=== PATIENT | female | born 1940 | race Caucasian/White ===

== ENCOUNTER 2016-12-06 10:59 | Outpatient (CLI) | payer OTHER ==
--- NOTE | 2016-12-06 12:23 | DIAGNOSTIC IMAGING REPORT ---
PROCEDURE: DEXA BONE DENSITY STUDY CLINICAL INDICATION: SCREENING COMPARISON: DEXA 02/08/2013 FINDINGS: LUMBAR SPINE: Bone mineral density 0.797 g/cm2, T score -2.3 osteopenia which represents a 1.4% improvement from the previous study LEFT HIP: Bone mineral density 0.956 g/cm2, T score 0.1 normal which represents a 6.2% improvement from the previous study LEFT FEMORAL NECK: Bone mineral density 0.744 g/cm2, T score -0.9 normal which represents a 1.2% decrease since the previous study FRACTURE RISK CALCULATION ( when applicable): 10-year fracture risk of a major osteoporotic fracture 9.8% and of a hip fracture 1.5% (T score greater or equal to -1.0 to: NORMAL) (T score from -1.1 to -2.4: OSTEOPENIA) (T score ess than or equal to -2.5: OSTEOPOROSIS) IMPRESSION: 1. Lumbar spine osteopenia with a 10-year major fracture risk of 9.8% and a hip fracture risk of 1.5%
== END 2016-12-06 23:00 ==
LOC: XR SRH 10:59
DX: M85.88 Other specified disorders of bone density and structure, other site (principal)

== ENCOUNTER 2017-02-01 13:04 | Outpatient (CLI) | payer OTHER ==
--- NOTE | 2017-02-01 13:50 | DIAGNOSTIC IMAGING REPORT ---
PROCEDURE: XR SHOULDER 2 OR MORE VW-RIGHT INDICATION: R SHOULDER PAIN TECHNIQUE: Three views. COMPARISON: Intraoperative right shoulder films 09/03/2011 FINDINGS: There is internal and external rotation without fracture or dislocation. A side plate and seven screws are across the healed humeral neck fracture. IMPRESSION: 1. Status post fixation. No of fracture or dislocation.
== END 2017-02-01 23:00 ==
LOC: XR SRH 13:04
DX: M25.511 Pain in right shoulder (principal); Z47.89 Encounter for other orthopedic aftercare

== ENCOUNTER 2017-04-11 09:32 | Emergency (ER) | payer OTHER ==
--- NOTE | 2017-04-11 11:02 | ED ORDER SUMMARY ---
..... Patient: DORA GALICIA OrderSheet [facility] VisitID: [id number] [address] [place] [address] 77y, F Registration Date/Time: 04/11/2017 ORDER SHEET Weight: 72.5 kg (stated) Allergies: No Known Drug Allergy GENERAL ORDERS: MEDICATION ORDERS: Proparacaine Eye Drops (Solution 0.5 %) 2 drops (place at bedside) (10:36 04/11/2017 Kari Mccrary) (Ack 10:43 MWinterer R.N.) (10:43 MWinterer R.N.) Fluorescein Eye Strips 1 strips (bedside with wood's lamp) (10:37 04/11/2017 Kari Mccrary) (10:44 MWinterer R.N.) IV FLUIDS: ORDER SHEET NOTES: [Electronically signed by Renetta Espinoza R.N. (11:11 04/11/2017)] [Electronically signed by Ryder Lynn Dr. (05:01 04/16/2017)] [Electronically locked/signed by Renetta Espinoza R.N. (11:11 04/11/2017)]
--- NOTE | 2017-04-11 11:02 | ED NURSING NOTES ---
Clinical Report - Nurses [facility] [address] [place] [address] 04/11/2017 9:36 Patient: DORA GALICIA TRIAGE Triage time 10:12. Acuity: LEVEL 4. Chief Complaint: REDNESS, PAIN and FOREIGN BODY TO RIGHT EYE. --10:16 Ignacia Thomas R.N. 10:12 04/11/17. BP: 142/71. HR: 81. RR: 18. O2 saturation: 94%. Temp: 98.4 F. Pain level now: 01/28. --10:16 Ignacia Thomas R.N. Weight: 72.5 kg stated. Height/Length: 67 inches Per Patient. BMI: 25.1. --10:16 Ignacia Thomas R.N. Medications Chromium Oral (Capsule 1 mg) 1 capsule, daily . Citracal Plus Oral. ClonazePAM Oral 0.5 mg, at bedtime. Ibuprofen Oral 400 mg, at bedtime. Magnesium Oral, daily. OPC 3 2 tabs daily . PROzac Oral 40mg every other day. Synthroid Oral 100 mcg, daily. TraZODone HCl Oral 100 mg, at bedtime. Vitamin B Complex Oral 1 daily . Vitamin D Oral (Capsule 2000 unit) 1 capsule, daily. --11:11 Renetta Espinoza R.N. Allergies No Known Drug Allergy. --11:11 Renetta Espinoza R.N. History Arrived by private vehicle. Historian: patient. Accompanied by family. This started yesterday. ( pt believes she has an eyelash stuck in her eye). 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 PAST MEDICAL HX: Immunizations: up-to-date. SOCIAL HX: Never smoker. Alcohol use; consumes beer occasionally. No drug use. No infectious disease exposure. --10:16 Ignacia Thomas R.N. PROBLEMS: Lumpectomy. Radiation Therapy. Breast CA . Hypertension. --10:14 Ignacia Thomas R.N. Interventions ID band on patient. --10:16 Ignacia Thomas R.N. NURSING PROGRESS NOTES 10:43 04/11/2017 Proparacaine Eye Drops 2 drop given. (placed at bedside). --10:43 Edwige Sage R.N. 10:44 04/11/2017 FLUORESCEIN Opth soln 1 Strip given. (placed at bedside). --10:44 Edwige Sage R.N. Care transferred and report received (RN Ignacia). --11:00 Tata Hurst R.N. DISPOSITION / DISCHARGE Departure time: 11:Apr 11 2017. Condition at departure: improved. No learning barriers present. Discharge instructions provided and reviewed with the patient. Reviewed warnings. Reviewed medication(s). Treatments reviewed. Reviewed referrals. Patient verbalized understanding. Written instructions provided in [place]ij[place]. The patient was discharged home and accompanied by spouse. She left the Emergency Department ambulatory and via private vehicle. Spouse driving. --11:11 Renetta Espinoza R.N. 11:10 04/11/17. BP: 124/61. HR: 70. RR: 18. O2 saturation: 95%. Temp: 98.4 F. Pain level now 0/10. --11:11 Renetta Espinoza R.N. Locked/Released at 04/11/2017 11:11 by Renetta Espinoza R.N.
--- NOTE | 2017-04-11 11:02 | ED NURSING NOTES ---
Clinical Report - Nurses [facility] [address] [place] [address] 04/11/2017 9:36 Patient: DORA GALICIA TRIAGE Triage time 10:12. Acuity: LEVEL 4. Chief Complaint: REDNESS, PAIN and FOREIGN BODY TO RIGHT EYE. --10:16 Ignacia Thomas R.N. 10:12 04/11/17. BP: 142/71. HR: 81. RR: 18. O2 saturation: 94%. Temp: 98.4 F. Pain level now: 01/28. --10:16 Ignacia Thomas R.N. Weight: 72.5 kg stated. Height/Length: 67 inches Per Patient. BMI: 25.1. --10:16 Ignacia Thomas R.N. Medications Chromium Oral (Capsule 1 mg) 1 capsule, daily . Citracal Plus Oral. ClonazePAM Oral 0.5 mg, at bedtime. Ibuprofen Oral 400 mg, at bedtime. Magnesium Oral, daily. OPC 3 2 tabs daily . PROzac Oral 40mg every other day. Synthroid Oral 100 mcg, daily. TraZODone HCl Oral 100 mg, at bedtime. Vitamin B Complex Oral 1 daily . Vitamin D Oral (Capsule 2000 unit) 1 capsule, daily. --11:11 Renetta Espinoza R.N. Allergies No Known Drug Allergy. --11:11 Renetta Espinoza R.N. History Arrived by private vehicle. Historian: patient. Accompanied by family. This started yesterday. ( pt believes she has an eyelash stuck in her eye). 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 PAST MEDICAL HX: Immunizations: up-to-date. SOCIAL HX: Never smoker. Alcohol use; consumes beer occasionally. No drug use. No infectious disease exposure. --10:16 Ignacia Thomas R.N. PROBLEMS: Lumpectomy. Radiation Therapy. Breast CA . Hypertension. --10:14 Ignacia Thomas R.N. Interventions ID band on patient. --10:16 Ignacia Thomas R.N. NURSING PROGRESS NOTES 10:43 04/11/2017 Proparacaine Eye Drops 2 drop given. (placed at bedside). --10:43 Edwige Sage R.N. 10:44 04/11/2017 FLUORESCEIN Opth soln 1 Strip given. (placed at bedside). --10:44 Edwige Sage R.N. Care transferred and report received (RN Ignacia). --11:00 Tata Hurst R.N. DISPOSITION / DISCHARGE Departure time: 11:Apr 11 2017. Condition at departure: improved. No learning barriers present. Discharge instructions provided and reviewed with the patient. Reviewed warnings. Reviewed medication(s). Treatments reviewed. Reviewed referrals. Patient verbalized understanding. Written instructions provided in [place]. The patient was discharged home and accompanied by spouse. She left the Emergency Department ambulatory and via private vehicle. Spouse driving. --11:11 Renetta Espinoza R.N. 11:10 04/11/17. BP: 124/61. HR: 70. RR: 18. O2 saturation: 95%. Temp: 98.4 F. Pain level now 0/10. --11:11 Renetta Espinoza R.N. Locked/Released at 04/11/2017 11:11 by Renetta Espinoza R.N.
--- NOTE | 2017-04-11 11:02 | ED CLINICAL REPORT ---
Clinical Report - Physicians/Mid Levels [facility] [address] [place] [address] 04/11/2017 9:36 Patient: DORA GALICIA Time Seen: 1022. Arrived- By private vehicle. Historian- patient. HISTORY OF PRESENT ILLNESS Chief Complaint: EYE IRRITATION. This started yesterday, involves the right eye and is characterized as moderate in severity. The patient may have sustained an injury. This occurred at home. Mechanism- working out in the garden. Eye discomfort, redness and irritation. Patient also notes other injury (none). REVIEW OF SYSTEMS No fever, sore throat or cough. All systems otherwise negative, except as recorded above. PAST HISTORY See nurses notes. Tetanus immunization status is up-to-date. Medications: Chromium Oral (Capsule 1 mg) 1 capsule, daily . Citracal Plus Oral. ClonazePAM Oral 0.5 mg, at bedtime. Ibuprofen Oral 400 mg, at bedtime. Magnesium Oral, daily. OPC 3 2 tabs daily . PROzac Oral 40mg every other day. Synthroid Oral 100 mcg, daily. TraZODone HCl Oral 100 mg, at bedtime. Vitamin B Complex Oral 1 daily . Vitamin D Oral (Capsule 2000 unit) 1 capsule, daily. Allergies: No Known Drug Allergy. ADDITIONAL NOTES The nursing notes have been reviewed. PHYSICAL EXAM Vital Signs: 04/11/2017 10:12 BP: 142/71. HR: 81. RR: 18. O2 saturation: 94%. Temp: 98.4 F. Pain level now: 3/10. Blood pressure normal. Oxygen saturation normal. Appearance: Alert. Oriented X3. ( non-toxic). No acute distress. HEENT: Ears normal. Nose normal. Pharynx normal. Head appears normal to external inspection. Rt Eye: Pupil 3mm. Eyes: Visual acuity noted- see nurse's notes. Pupils equal, round and reactive to light. Accommodation normal. A small 2 mm plantlike material has been removed from the underside of the right upper eyelid. No other foreign bodies noted. Patient reported significant relief with the removal of this foreign body. Fluorescein examination does not show any signs of uptake. No signs of corneal abrasion. No hypopyon. No cell and flare. Negative Chava sign. Lt Eye: Pupil 3mm. Neck: Neck supple. Normal inspection. CVS: Normal heart rate and rhythm. Heart sounds normal. Respiratory: No respiratory distress. Breath sounds normal. Abdomen: Nontender. No organomegaly. : Normal genitalia. PROGRESS AND PROCEDURES Removal of Eye Foreign Body: After topical anesthesia with 2 drops of Proparacaine, a single foreign body was successfully removed from the right eyelid's undersurface using no magnification, a moistened sterile cotton swab and lid eversion. There were no complications encountered. The patient was cooperative. (Patient tolerated procedure well.). Course of Care: The patient is a pleasant 77-year-old female presented for evaluation of irritation to the right eye. Patient is a foreign body noted on examination that was successfully removed. No other concerning findings on patient's evaluation and workup. Patient reported relief of her symptoms with the interventions provided here in the emergency department. I discussion the patient in regards to her workup here in the emergency department including diagnosis, home care, follow-up, and return precautions. All questions have been answered. The patient expressed understanding of these instructions and was agreeable to them. Patient is a stable outpatient candidate. Do not feel further workup here in the emergency department or admission to the hospital is required at this time. Disposition: Discharged. Condition: good. CLINICAL IMPRESSION Removed conjunctival foreign body to right eye. INSTRUCTIONS Warnings: GENERAL WARNINGS: Return or contact your physician immediately if your condition worsens or changes unexpectedly, if not improving as expected, or if other problems arise. Specifically return if pain, vomiting, bleeding, breathing difficulty or fever. worsening vision, increased redness, discharge from the eye, or other concerns. OTC Medications: Acetaminophen (available over the counter): take according to label instructions. Motrin (available over the counter): take according to label instructions. Follow-up: Return to the emergency department as needed. Follow up with your doctor as needed. Summary of care provided to patient via paper. Screening today revealed the patient's blood pressure to be in the normal range. The patient should follow up with a primary care provider for blood pressure management. Understanding of the discharge instructions verbalized by patient. (Electronically signed by Ryder Lynn Dr. 04/16/2017 5:01)
--- NOTE | 2017-04-11 11:02 | ED ORDER SUMMARY ---
..... Patient: DORA GALICIA OrderSheet [facility] VisitID: [id number] [address] [place] [address] 77y, F Registration Date/Time: 04/11/2017 ORDER SHEET Weight: 72.5 kg (stated) Allergies: No Known Drug Allergy GENERAL ORDERS: MEDICATION ORDERS: Proparacaine Eye Drops (Solution 0.5 %) 2 drops (place at bedside) (10:36 04/11/2017 Kari Mccrary) (Ack 10:43 MWinterer R.N.) (10:43 MWinterer R.N.) Fluorescein Eye Strips 1 strips (bedside with wood's lamp) (10:37 04/11/2017 Kari Mccrary) (10:44 MWinterer R.N.) IV FLUIDS: ORDER SHEET NOTES: [Electronically signed by Renetta Espinoza R.N. (11:11 04/11/2017)] [Electronically signed by Ryder Lynn Dr. (05:01 04/16/2017)] [Electronically locked/signed by Renetta Espinoza R.N. (11:11 04/11/2017)]
--- NOTE | 2017-04-16 05:01 | ED DISCHARGE INSTRUCTIONS ---
Patient: DORA GALICIA General Instructions [facility] VisitID: [id number] [place] [address] 77y, F Registration Date/Time: 04/11/2017 Removed conjunctival foreign body to right eye. INSTRUCTIONS Warnings: GENERAL WARNINGS: Return or contact your physician immediately if your condition worsens or changes unexpectedly, if not improving as expected, or if other problems arise. Specifically return if pain, vomiting, bleeding, breathing difficulty or fever. worsening vision, increased redness, discharge from the eye, or other concerns. OTC Medications: Acetaminophen (available over the counter): take according to label instructions. Motrin (available over the counter): take according to label instructions. Follow-up: Return to the emergency department as needed. Follow up with your doctor as needed. Summary of care provided to patient via paper. Screening today revealed the patient's blood pressure to be in the normal range. The patient should follow up with a primary care provider for blood pressure management. Understanding of the discharge instructions verbalized by patient. ADDITIONAL INFORMATION Particle In The Eye [Conjunctival F.B., Resolved] The pain in your eye is from a bit of dust or dirt or other small particle that got into your eye. The exam today shows that there is no more particle there. Any discomfort you still have should go away during the next 24 hours. Home Care: Apply a cool compress (towel soaked in cool water) to the eye that hurts. Do this 3-4 times a day. It will help to reduce redness and swelling. You may use decongestant eye drops (such as Visine) to reduce irritation and redness, unless another medicine was prescribed. You may use acetaminophen (Tylenol) or ibuprofen (Motrin, Advil) to control pain, unless another pain medicine was prescribed. [ NOTE: If you have chronic liver or kidney disease or ever had a stomach ulcer or GI bleeding, talk with your doctor before using these medicines.] Follow Up with your doctor or this facility as directed, or if your symptoms do not improve within two days. Get Prompt Medical Attention if any of the following occur: Increased swelling of the eyelid Increased pain or redness in the eye Drainage from the eye Redness in the skin around the eye You have been given the following additional information: Conjunctival Foreign Body, Resolved (Electronically signed by Ryder Lynn Dr. 04/16/2017 5:01)
--- NOTE | 2017-04-16 05:02 | ED MAR SUMMARY ---
..... Medication Administration Record [facility] [address] [place] [address] Patient: DORA GALICIA Visit ID: [id number] 77y, F Weight: 72.5 kg Height/Length: 67 in BMI: 25.1 ALLERGIES: No Known Drug Allergy Given 10:43 04/11/2017 Edwige Sage, R.N. Medication Administered: PROPARACAINE [EYE DROPS], Dose: 2 drop Eye Drops. Medication Ordered: Proparacaine Eye Drops (Solution 0.5 %) 2 drops (place at bedside). Given 10:44 04/11/2017 Edwige Sage, R.N. Medication Administered: FLUORESCEIN [EYE STRIPS], Dose: 1 Strip Opth soln. Medication Ordered: Fluorescein Eye Strips 1 strips (bedside with wood's lamp).
--- NOTE | 2017-04-16 05:02 | ED MAR SUMMARY ---
..... Medication Administration Record [facility] [address] [place] [address] Patient: DORA GALICIA Visit ID: [id number] 77y, F Weight: 72.5 kg Height/Length: 67 in BMI: 25.1 ALLERGIES: No Known Drug Allergy Given 10:43 04/11/2017 Edwige Sage, R.N. Medication Administered: PROPARACAINE [EYE DROPS], Dose: 2 drop Eye Drops. Medication Ordered: Proparacaine Eye Drops (Solution 0.5 %) 2 drops (place at bedside). Given 10:44 04/11/2017 Edwige Sage, R.N. Medication Administered: FLUORESCEIN [EYE STRIPS], Dose: 1 Strip Opth soln. Medication Ordered: Fluorescein Eye Strips 1 strips (bedside with wood's lamp).
--- NOTE | 2017-04-16 05:02 | ED MED RECONCILIATION SUMMARY ---
Patient: DORA GALICIA Medication Reconciliation Report [facility] VisitID: [id number] [address] [place] [address] 77y, F Registration Date/Time: 04/11/2017 Weight: 72.5 kg Height/Length: 67 in. BMI: 25.1 ALLERGIES: No Known Drug Allergy The patient's Home Medications are listed below: THE FOLLOWING MEDICATIONS NEED TO BE RECONCILED: Chromium Oral (1 mg) 1 capsule, daily Citracal Plus Oral ClonazePAM Oral 0.5 mg, at bedtime Ibuprofen Oral 400 mg, at bedtime Magnesium Oral, daily OPC 3 2 tabs daily PROzac Oral 40mg every other day Synthroid Oral 100 mcg, daily TraZODone HCl Oral 100 mg, at bedtime Vitamin B Complex Oral 1 daily Vitamin D Oral (2000 unit) 1 capsule, daily The source(s) of the original Home Medication information: Not obtained. The following Medications were given to the patient in the Emergency Department: Proparacaine [Eye Drops] Eye Drops 2 drop, administered: 04/11/2017 10:43:00 AM FLUORESCEIN [EYE STRIPS] Opth soln 1 Strip, administered: 04/11/2017 10:44:00 AM The following Medications were prescribed to the patient: Acetaminophen (available over the counter): take according to label instructions. -- Ryder Lynn Dr. Motrin (available over the counter): take according to label instructions. -- Ryder Lynn Dr.
--- NOTE | 2017-04-16 05:02 | ED MED RECONCILIATION SUMMARY ---
Patient: DORA GALICIA Medication Reconciliation Report [facility] VisitID: [id number] [address] [place] [address] 77y, F Registration Date/Time: 04/11/2017 Weight: 72.5 kg Height/Length: 67 in. BMI: 25.1 ALLERGIES: No Known Drug Allergy The patient's Home Medications are listed below: THE FOLLOWING MEDICATIONS NEED TO BE RECONCILED: Chromium Oral (1 mg) 1 capsule, daily Citracal Plus Oral ClonazePAM Oral 0.5 mg, at bedtime Ibuprofen Oral 400 mg, at bedtime Magnesium Oral, daily OPC 3 2 tabs daily PROzac Oral 40mg every other day Synthroid Oral 100 mcg, daily TraZODone HCl Oral 100 mg, at bedtime Vitamin B Complex Oral 1 daily Vitamin D Oral (2000 unit) 1 capsule, daily The source(s) of the original Home Medication information: Not obtained. The following Medications were given to the patient in the Emergency Department: Proparacaine [Eye Drops] Eye Drops 2 drop, administered: 04/11/2017 10:43:00 AM FLUORESCEIN [EYE STRIPS] Opth soln 1 Strip, administered: 04/11/2017 10:44:00 AM The following Medications were prescribed to the patient: Acetaminophen (available over the counter): take according to label instructions. -- Ryder Lynn Dr. Motrin (available over the counter): take according to label instructions. -- Ryder Lynn Dr.
== END 2017-04-11 11:10 | disposition home or self-care (01) ==
LOC: ED SRH 09:32
DX: T15.11XA Foreign body in conjunctival sac, right eye, initial encounter (principal); I10 Essential (primary) hypertension; Z79.1 Long term (current) use of non-steroidal anti-inflammatories (NSAID); Z79.899 Other long term (current) drug therapy